=== PATIENT | female | born 1965 | race Two or more races ===

== ENCOUNTER 2018-11-29 23:48 | Emergency (ER) | payer OTHER, SELFPAY ==
[~2018-11-29] VITALS: Ht 157.5 cm; Wt 113.4 kg
[~2018-11-29 23:48] MED LIST: CLINDAMYCIN HC150 MG PO; NORCO 5-325 TA1 EACH PO
--- NOTE | 2018-11-30 | NUR ---
ED Nurse Note: pt walked in c/o epigastric pain radiating to right side started about an hour ago, pt reports nausea but denies vomiting, no dry heaves noted at this time, denies diarrhea but reports constipation, pt reports she has hx cholecystectomy. pt vss, resp even and unlabored on RA, active BS, noted tenderness upon palpation on upper quad, ERMD aware of pt's pain, will cont monitor.
[2018-11-30] MEDS ORDERED: Morphine Sulfate 4mg/ml Inj (IV USE ONLY) IVP ONE ×3 (00:15→05:15)
[2018-11-30] MEDS ORDERED: Isovue-300 100ml vial INJ PRN (00:15)
[2018-11-30 00:23] LABS: APPEARANCE,URINE CLEAR; BILIRUBIN, URINE NEGATIVE (NEGATIVE); COLOR,URINE PALE YELLOW; GLUCOSE, URINE (UA) NEGATIVE (NEGATIVE); KETONES,URINE NEGATIVE (NEGATIVE); LEUKOCYTE ESTERASE ,URINE 1+ (NEGATIVE); NITRITE,URINE NEGATIVE (NEGATIVE); PH,URINE 7 (4.5-8.0); PROTEIN,URINE NEGATIVE (NEGATIVE); UROBILINOGEN,URINE NORMAL MG/DL (0.0-1.0)
[2018-11-30 00:28] LABS: BASOPHILS % (AUTO) 0.8 % (0.0-2.0); EOSINOPHILS % (AUTO) 1.2 % (0.0-3.0); HEMATOCRIT 40.3 % (37.0-47.0); HEMOGLOBIN 13.9 G/DL (12.0-16.0); LYMPHOCYTES % (AUTO) 40.6 % (20.0-45.0); MEAN CORPUSCULAR VOLUME 86 FL (80-99); MONOCYTES % (AUTO) 8.8 % (1.0-10.0); NEUTROPHILS % (AUTO) 48.7 % (45.0-75.0); PLATELET COUNT 152 K/UL (150-450); RED BLOOD COUNT 4.68 M/UL (4.20-5.40); RED CELL DISTRIBUTION WIDTH 13.3 % (11.6-14.8); WHITE BLOOD COUNT 6.8 K/UL (4.8-10.8)
--- NOTE | 2018-11-30 00:35 | NUR ---
ED Nurse Note: pt provided w/ extra blanket for comfort, will cont monitor. safety precautions in place, vss.
[2018-11-30 00:41] LABS: ANION GAP 8 mmol/L (5-15); BLOOD UREA NITROGEN 10 mg/dL (7-18); CARBON DIOXIDE 26 MMOL/L (21-32); CHLORIDE 104 MMOL/L (98-107); CREATININE 0.7 MG/DL (0.55-1.30); SODIUM 138 MMOL/L (136-145)
[2018-11-30 00:43] VITALS: BP 179/79
--- NOTE | 2018-11-30 00:44 | Emergency Room Report ---
History of Present Illness General Chief Complaint: Abdominal Pain Source: Patient Present Illness HPI Patient presents with epigastric and upper abdominal pain for 2 days. It has been intermittent but constant now for the last 4 hours. She feels nausea but has not vomited. She feels flushed but denies any fevers or chills. She denies diarrhea. She felt similar to this when she had her gallbladder removed 23 years ago. At that time she was told she had a small ventral hernia. This intermittently gives her pain. This is not the area of where the pain is at this time. She has been able to move her bowels recently. She is passing gas. She denies any dysuria or flank pain at this time. She is no hematuria. The pain is rated 10/10, epigastric nonradiating, constant, burning and pressure. There is no chest pain, shortness of breath, rashes, extremity pain. Allergies: Coded Allergies: No Known Allergies (Unverified , 05/21/12) Patient History Past Medical History: see triage record Past Surgical History: severo Social History: Denies: smoking, alcohol use Social History Narrative brought by daughter Last Menstrual Period: 11/12/18 Now: No : 4 Para: 4 Reviewed Nursing Documentation: PMH: Agreed; PSxH: Agreed Nursing Documentation-PMH Hx Hypertension: Yes Review of Systems All Other Systems: negative except mentioned in HPI Physical Exam Vital Signs Date Time Temp Pulse Resp B/P (MAP) Pulse Ox O2 Delivery O2 Flow Rate FiO2 11/29/18 23:50 97.9 58 16 180/83 (115) 97 Room Air Sp02 EP Interpretation: reviewed, normal General Appearance: well appearing, alert, GCS 15, non-toxic, mild distress Head: normocephalic Eyes: bilateral eye normal inspection, bilateral eye PERRL ENT: moist mucus membranes Neck: supple Respiratory: lungs clear, normal breath sounds Cardiovascular #1: regular rate, rhythm Cardiovascular #2: 2+ radial (R) Gastrointestinal: normal inspection, normal bowel sounds, no mass, non- distended, no rebound, guarding - Minimal, tenderness - Epigastric pain, other - No right lower quadrant tenderness Genitourinary: no CVA tenderness Musculoskeletal: back normal, gait/station normal, normal range of motion, no calf tenderness Neurologic: alert, oriented x3, grossly normal Psychiatric: mood/affect normal Skin: no rash Medical Decision Making Diagnostic Impression: Primary Impression: Abdominal pain Qualified Codes: R10.13 - Epigastric pain Additional Impressions: Intractable vomiting Qualified Codes: R11.2 - Nausea with vomiting, unspecified Appendicolith R/O appendicitis ER Course Patient presents with epigastric pain with a distant history of cholecystectomy. Differential includes retained stone, pancreatitis, gastritis , peptic ulcer disease, diverticulitis amongst others. She is concerned about hernia however the exam is inconsistent with that. Due to the severe nature of the pain CT of the abdomen is indicated. In addition EKG and chest x-ray and labs will be performed. The patient will be treated with IV hydration, Zofran and morphine. KG with sinus bradycardia rate [address]-T wave changes Chest x-ray poor inspiration. Labs with normal white count without left shift. Potassium slightly low. Patient continuing to vomit. Metoclopramide and Benadryl given. Pain persists. Analgesia repeated. Continues to vomit bilious material. She continues to have epigastric pain but it is improved. CT abdomen suggests appendix upper limit of normal with appendicolith without any inflammation. This is inconsistent with the patient's presentation and pain pattern. However antibiotics are begun and also the patient is admitted to the hospital. Discussed with Dr. Arzate who accepts the patient in transfer to [facility]. Laboratory Tests Test 11/30/18 00:01 White Blood Count 6.8 K/UL (4.8-10.8) Red Blood Count 4.68 M/UL (4.20-5.40) Hemoglobin 13.9 G/DL (12.0-16.0) Hematocrit 40.3 % (37.0-47.0) Mean Corpuscular Volume 86 FL (80-99) Mean Corpuscular Hemoglobin 29.8 PG (27.0-31.0) Mean Corpuscular Hemoglobin Concent 34.6 G/DL (32.0-36.0) Red Cell Distribution Width 13.3 % (11.6-14.8) Platelet Count 152 K/UL (150-450) Mean Platelet Volume FL (6.5-10.1) Neutrophils (%) (Auto) 48.7 % (45.0-75.0) Lymphocytes (%) (Auto) 40.6 % (20.0-45.0) Monocytes (%) (Auto) 8.8 % (1.0-10.0) Eosinophils (%) (Auto) 1.2 % (0.0-3.0) Basophils (%) (Auto) 0.8 % (0.0-2.0) Prothrombin Time 10.6 SEC (9.30-11.50) Prothrombin Time INR 1.0 (0.9-1.1) PTT 27 SEC (23-33) Urine Color Pale yellow Urine Appearance Clear Urine pH 7 (4.5-8.0) Urine Specific [place] 1.010 (1.005-1.035) Urine Protein Negative (NEGATIVE) Urine Glucose (UA) Negative (NEGATIVE) Urine Ketones Negative (NEGATIVE) Urine Blood 1+ (NEGATIVE) H Urine Nitrite Negative (NEGATIVE) Urine Bilirubin Negative (NEGATIVE) Urine Urobilinogen Normal MG/DL (0.0-1.0) Urine Leukocyte Esterase 1+ (NEGATIVE) H Urine RBC 2-4 /HPF (0 - 2) H Urine WBC 2-4 /HPF (0 - 2) Urine Squamous Epithelial Cells Moderate /LPF (NONE/OCC) H Urine Bacteria Occasional /HPF (NONE) Sodium Level 138 MMOL/L (136-145) Potassium Level 3.0 MMOL/L (3.5-5.1) L Chloride Level 104 MMOL/L (98-107) Carbon Dioxide Level 26 MMOL/L (21-32) Anion Gap 8 mmol/L (5-15) Blood Urea Nitrogen 10 mg/dL (7-18) Creatinine 0.7 MG/DL (0.55-1.30) Estimate Glomerular Filtration Rate > 60 mL/min (>60) Glucose Level 123 MG/DL (74-106) H Calcium Level 9.0 MG/DL (8.5-10.1) Total Bilirubin 0.3 MG/DL (0.2-1.0) Aspartate Amino Transferase (AST) 19 U/L (15-37) Alanine Aminotransferase (ALT) 31 U/L (12-78) Alkaline Phosphatase 77 U/L (46-116) Troponin I 0.000 ng/mL (0.000-0.056) Total Protein 7.8 G/DL (6.4-8.2) Albumin 4.0 G/DL (3.4-5.0) Globulin 3.8 g/dL Albumin/Globulin Ratio 1.1 (1.0-2.7) Lipase 193 U/L (73-393) EKG Diagnostic Results Rate: bradycardiac Rhythm: NSR ST Segments: no acute changes Rhythm Strip Diag. Results EP Interpretation: yes Rhythm: no PVC's, no ectopy, other - Bradycardia Chest X-Ray Diagnostic Results Chest X-Ray Diagnostic Results : Chest X-Ray Ordered: Yes # of Views/Limited/Complete: 1 View Indication: Other EP Interpretation: Yes Interpretation: no consolidation, no effusion, no pneumothorax, other - Poor inspiration Impression: Other Electronically Signed by: Electronically signed by Logan Vo MD CT/MRI/US Diagnostic Results CT/MRI/US Diagnostic Results : Imaging Test Ordered: Abdomen/pelvis Impression Appendix is dilated to 9 mm in maximal diameter, likely obstructed by 8 mm appendicolith near the orifice best seen on series 3 images 67-78, without surrounding mesenteric inflammatory change, can still be patient's baseline. Early appendicitis should also be considered. Last Vital Signs Date Time Temp Pulse Resp B/P (MAP) Pulse Ox O2 Delivery O2 Flow Rate FiO2 11/30/18 07:40 98.9 62 15 146/75 97 Room Air Status: improved Disposition: XFER SHT-TRM HOSP Condition: Serious Referrals: NON PHYSICIAN (PCP) Logan Vo MD Nov 30, 2018 00:44
[2018-11-30 00:45] LABS: ALANINE AMINOTRANSFERASE 31 U/L (12-78); ALBUMIN/GLOBULIN RATIO 1.1 (1.0-2.7); ALKALINE PHOSPHATASE 77 U/L (46-116); ASPARTATE AMINO TRANSFERASE 19 U/L (15-37); BILIRUBIN,TOTAL 0.3 MG/DL (0.2-1.0)
--- NOTE | 2018-11-30 01:10 | NUR ---
ED Nurse Note: pt vomited x 2 after drinking redi-cat, ERMD notified, will cont monitor. aspiration precaution done.
[2018-11-30] MEDS ORDERED: DiphenhydrAMINE 50mg/ml Inj IVP ONE (01:15)
[2018-11-30] MEDS ORDERED: Metoclopramide 10mg/2ml Inj IVP ONE (01:15)
[2018-11-30 01:43] VITALS: BP 147/78
--- NOTE | 2018-11-30 01:45 | NUR ---
ED Nurse Note: pt resting at this time, daughter at the bedside, vss, resp even and unlabored, safety precaution in place, pt advised to notify staff if need assist. will cont monitor.
--- NOTE | 2018-11-30 02:15 | NUR ---
ED Nurse Note: pt reports pain on abd area, ermd notified. will cont monitor.
--- NOTE | 2018-11-30 02:21 | Diagnostic Imaging Report ---
EXAM: XR Chest, 1 View CLINICAL HISTORY: ABD PAIN TECHNIQUE: Frontal view of the chest. COMPARISON: No relevant prior studies available. FINDINGS: Lungs: Unremarkable. No consolidation. Pleural space: Unremarkable. No pneumothorax. Heart: Unremarkable. No cardiomegaly. Mediastinum: Unremarkable. Bones/joints: Unremarkable. IMPRESSION: Normal chest x-ray.
[2018-11-30 02:43] VITALS: BP 130/97
--- NOTE | 2018-11-30 03:00 | NUR ---
ED Nurse Note: PT OFF TO CT.
--- NOTE | 2018-11-30 03:14 | NUR ---
HAND-OFF: Report given to ALECIA DUQUE [facility], PT CURRENTLY IN CT.
--- NOTE | 2018-11-30 03:40 | NUR ---
ED Nurse Note: Recieved report from ALECIA Ricks to resume care, pt is returning from imaging, on gurney awake, alert and oriented x 4 and with active emesis, pt has patent iv line and fluids re-started as ordered, md informed of emesis, pt daughter at bedside, will resume care as ordered and continue to closely monitor.
--- NOTE | 2018-11-30 03:47 | Diagnostic Imaging Report ---
EXAM: CT Abdomen and Pelvis With Intravenous Contrast CLINICAL HISTORY: ABD PAIN TECHNIQUE: Axial computed tomography images of the abdomen and pelvis with intravenous contrast. CTDI is 26.4 mGy and DLP is 1431 mGy-cm. One or more of the following dose reduction techniques were used: automated exposure control, adjustment of the mA and/or kV according to patient size, use of iterative reconstruction technique. Coronal and sagittal reconstructions are performed COMPARISON: No relevant prior studies available. FINDINGS: Lung bases: Unremarkable. No mass. No consolidation. ABDOMEN: Liver: Cristóbal's lobe of liver Gallbladder and bile ducts: Cholecystectomy clips. No ductal dilation. Pancreas: Unremarkable. No mass. No ductal dilation. Spleen: Unremarkable. No splenomegaly. Adrenals: Unremarkable. No mass. Kidneys and ureters: Unremarkable. No solid mass. No hydronephrosis. Stomach and bowel: Unremarkable. No obstruction. No mucosal thickening. PELVIS: Appendix: Appendix is dilated to 9 mm in maximal diameter, likely obstructed by 8 mm appendicolith near the orifice best seen on series 3 images 67-78, without surrounding mesenteric inflammatory change, can still be patient's baseline. Bladder: Unremarkable. No mass. Reproductive: Unremarkable as visualized. ABDOMEN and PELVIS: Intraperitoneal space: Unremarkable. No free air. No significant fluid collection. Bones/joints: No acute fracture. No dislocation. Soft tissues: Unremarkable. Vasculature: Unremarkable. No abdominal aortic aneurysm. Lymph nodes: Unremarkable. No enlarged lymph nodes. IMPRESSION: Appendix is dilated to 9 mm in maximal diameter, likely obstructed by 8 mm appendicolith near the orifice best seen on series 3 images 67-78, without surrounding mesenteric inflammatory change, can still be patient's baseline. Early appendicitis should also be considered. Please correlate with clinical and laboratory findings. <MYCVCSECTION> [employer] 11/30/18 03:54 Verify Receipt Verified receipt with Charge Nurse Shanae in the ER for Dr. Vo on 11/30 03:53 (-07:00)
[2018-11-30] MEDS ORDERED: Piperacillin/Tazobactam 3.375 GM in NS 110 ML IVPB ONE (04:15)
[2018-11-30 05:00] VITALS: BP 119/74
--- NOTE | 2018-11-30 05:15 | NUR ---
ED Nurse Note: Pt continues to rest quietly in bed, on cardiac monitoring, iv site patent with fluids infusing as ordered, pt also given iv antibiotics with no s/s of adverse reaction noted, also re-medicated for pain and nausea and emesis, pt continues to have frequent intermittent periods of emesis, and increased pain, pain meds effective, pt being transferred for continued care, waiting for all transfer information, daughter remains at bedside.
--- NOTE | 2018-11-30 06:10 | NUR ---
ED Nurse Note: Pt being transferred to [facility], report called to fish house worker ALECIA Beard, at [phone], report given with all pertinent info and results, ambulance [id number], pt aware and agrees to transfer, will continue to closely monitor while waiting for transport.
--- NOTE | 2018-11-30 07:10 | NUR ---
HAND-OFF: Report given to ALECIA Duran. Pt in bed sleeping, no sob or labored breathing, IV site intact and patent, on monitoring, v/s stable, waiting for pt transport for transfer, new ambulance ETA of 7:20, daughter remains at bedside, NAD noted during shift change.
[2018-11-30 07:40] VITALS: BP 146/75
--- NOTE | 2018-11-30 07:40 | NUR ---
ED Nurse Note: Report given to [facility] staff. Pt stable for transfer and belongings sent with pt.
--- NOTE | 2018-12-02 11:08 | Cardiology Report ---
APPROVED REPORT EKG Measurement Heart [id number] Sinus bradycardia Otherwise normal ECG
== END 2018-11-30 07:40 | disposition short-term general hospital (02) ==
LOC: EMR 11-30 00:20
DX: R10.13 Epigastric pain (principal); R11.2 Nausea with vomiting, unspecified; K38.1 Appendicular concretions; Z90.49 Acquired absence of other specified parts of digestive tract; I10 Essential (primary) hypertension; R00.1 Bradycardia, unspecified
CPT/HCPCS: 36415; 71045; 74177; 80053; 81003; 83690; 84484; 85025; 85610; 85730; 93005; 96361; 96365; 96367; 96372; 96375; 96376; 99285; J1200; J2270; J2405; J2543; J2550; J2765; J3480; Q9967; S0028

== ENCOUNTER 2018-12-26 21:57 | Emergency (ER) | payer OTHER ==
[~2018-12-26] VITALS: Ht 157.5 cm; Wt 90.7 kg
--- NOTE | 2018-12-26 22:15 | NUR ---
ED Nurse Note: Recieved pt from home, here with c/o mid abd pain x 3 hjours with nausea, no emesis, pt has had recent surgery and wants to make sure everything is ok, denies cp, sob, or any other complaints, pt gowned and iv ine placed.
--- NOTE | 2018-12-26 22:21 | Emergency Room Report ---
History of Present Illness General Chief Complaint: Abdominal Pain Source: Patient, Family Member Present Illness HPI 53-year-old female with a history of recent appendectomy a month ago. He also had previous cholecystectomy. She presents with chief complaint of abdominal pain. Onset today. Pain is diffuse in nature. Pain starts in epigastric area and radiate downward and diffusely. Pain is sharp and crampy. 9 out of 10. Nausea but no vomiting. Has diarrhea. No fever chills but no trauma. No urinary complaint. Nothing made it better. Movement and palpation made it worse. Allergies: Coded Allergies: No Known Allergies (Unverified , 05/21/12) Patient History Past Medical History: see triage record, old chart reviewed Past Surgical History: appy, severo Pertinent Family History: none Social History: Denies: smoking Last Menstrual Period: na Now: No Immunizations: other Reviewed Nursing Documentation: PMH: Agreed; PSxH: Agreed Nursing Documentation-PMH Hx Hypertension: Yes Review of Systems Eye: Denies: eye pain, blurred vision ENT: Denies: ear pain, nose congestion, throat swelling Respiratory: Denies: cough, shortness of breath Cardiovascular: Denies: chest pain, palpitations Gastrointestinal: Reports: abdominal pain, diarrhea, nausea; Denies: vomiting Musculoskeletal: Denies: back pain, joint pain Skin: Denies: rash Neurological: Denies: headache, numbness Endocrine: Denies: increased thirst, increased urine Hematologic/Lymphatic: Denies: easy bruising All Other Systems: negative except mentioned in HPI Physical Exam Vital Signs Date Time Temp Pulse Resp B/P (MAP) Pulse Ox O2 Delivery O2 Flow Rate FiO2 12/26/18 22:00 98.2 65 16 147/84 (105) 93 Room Air Vitals unremarkable Sp02 EP Interpretation: reviewed, normal General Appearance: well appearing, no apparent distress, alert Head: normocephalic, atraumatic Eyes: bilateral eye PERRL, bilateral eye EOMI ENT: hearing grossly normal, normal pharynx Neck: full range of motion, supple, no meningismus Respiratory: chest non-tender, lungs clear, normal breath sounds Cardiovascular #1: regular rate, rhythm, no murmur Gastrointestinal: no mass, no organomegaly, no bruit, non-distended, tenderness - Diffuse, decreased bowel sounds Musculoskeletal: back normal, gait/station normal, normal range of motion Psychiatric: mood/affect normal Medical Decision Making Diagnostic Impression: Primary Impression: Abdominal pain Qualified Codes: R10.84 - Generalized abdominal pain Additional Impression: Diarrhea Qualified Codes: R19.7 - Diarrhea, unspecified ER Course Patient presents with abdominal pain with diarrhea. Most likely viral in nature. No evidence of any obstruction. CT scans unremarkable. She does have elevated liver enzyme. This may be a viral hepatitis also. No evidence of any retained gallstone. Will discharge home. CT/MRI/US Diagnostic Results CT/MRI/US Diagnostic Results : Imaging Test Ordered: CT abdomen pelvis Impression Read by radiologist. Irregular indeterminate low-attenuation the left hepatic lobe. Otherwise negative. Last Vital Signs Date Time Temp Pulse Resp B/P (MAP) Pulse Ox O2 Delivery O2 Flow Rate FiO2 12/26/18 22:00 98.2 65 16 147/84 (105) 93 Room Air Status: improved Disposition: HOME, SELF-CARE Condition: Stable Scripts Ibuprofen* (MOTRIN*) 600 Mg Tablet 600 MG ORAL THREE TIMES A DAY, #30 TAB 0 Refills Prov: Jeremy Avelar MD 12/26/18 Ondansetron (Zofran) 4 Mg Tablet 4 MG ORAL Q6H PRN for Nausea & Vomiting, #10 TAB 0 Refills Prov: Jeremy Avelar MD 12/26/18 Patient Instructions: Abdominal Pain, Adult Additional Instructions: Follow-up with your doctor in 2-3 days. Return if symptoms worsen. Jeremy Avelar MD Dec 26, 2018 22:21
[2018-12-26] MEDS ORDERED: Morphine Sulfate 4mg/ml Inj (IV USE ONLY) IVP ONE (22:30)
[2018-12-26 22:32] LABS: APPEARANCE,URINE CLEAR; BILIRUBIN, URINE NEGATIVE (NEGATIVE); GLUCOSE, URINE (UA) NEGATIVE (NEGATIVE); KETONES,URINE NEGATIVE (NEGATIVE); LEUKOCYTE ESTERASE ,URINE 1+ (NEGATIVE); NITRITE,URINE NEGATIVE (NEGATIVE); PH,URINE 6 (4.5-8.0); PROTEIN,URINE NEGATIVE (NEGATIVE); UROBILINOGEN,URINE NORMAL MG/DL (0.0-1.0)
[2018-12-26 22:41] LABS: COLOR,URINE YELLOW
[2018-12-26 22:43] LABS: ANION GAP 10 mmol/L (5-15); BASOPHILS % (AUTO) 0.5 % (0.0-2.0); BLOOD UREA NITROGEN 13 mg/dL (7-18); CARBON DIOXIDE 27 MMOL/L (21-32); CHLORIDE 104 MMOL/L (98-107); CREATININE 0.8 MG/DL (0.55-1.30); EOSINOPHILS % (AUTO) 1.4 % (0.0-3.0); MEAN CORPUSCULAR VOLUME 85 FL (80-99); MONOCYTES % (AUTO) 8.6 % (1.0-10.0); NEUTROPHILS % (AUTO) 61.5 % (45.0-75.0); PLATELET COUNT 200 K/UL (150-450); POTASSIUM 3.2 MMOL/L (3.5-5.1); RED BLOOD COUNT 4.91 M/UL (4.20-5.40); RED CELL DISTRIBUTION WIDTH 12.5 % (11.6-14.8); SODIUM 141 MMOL/L (136-145); WHITE BLOOD COUNT 5.5 K/UL (4.8-10.8)
[2018-12-26 22:47] LABS: ALANINE AMINOTRANSFERASE 79 U/L (12-78); ALBUMIN 4.1 G/DL (3.4-5.0); ALKALINE PHOSPHATASE 152 U/L (46-116); ASPARTATE AMINO TRANSFERASE 46 U/L (15-37); BILIRUBIN,TOTAL 0.6 MG/DL (0.2-1.0)
--- NOTE | 2018-12-26 23:10 | NUR ---
ER DISCHARGE NOTE: Patient is cleared to be discharged per ERMD, pt is aox4, on room air, with stable vital signs. pt was given dc and prescription instructions, pt was able to verbalize understanding, pt id band and iv site removed without complications. pt is able to ambulate with steady gait. pt took all belongings.
[2018-12-26 23:20] VITALS: BP 147/84
[2018-12-26] MEDS ORDERED: IBUPROFEN600 MG ORAL (23:20)
[2018-12-26] MEDS ORDERED: ZOFRAN4 MG ORAL (23:20)
== END 2018-12-26 23:20 | disposition home or self-care (01) ==
LOC: EMR 22:20
DX: R10.84 Generalized abdominal pain (principal); R19.7 Diarrhea, unspecified; I10 Essential (primary) hypertension; Z90.49 Acquired absence of other specified parts of digestive tract
CPT/HCPCS: 36415; 74176; 80053; 81003; 83690; 85025; 96361; 96374; 96375; J2270; J2405; Z7502; 99284

== ENCOUNTER 2019-06-13 07:39 | Emergency (ER) | payer OTHER ==
[~2019-06-13] VITALS: Ht 162.6 cm; Wt 63.5 kg
[~2019-06-13 07:39] MED LIST changes: +IBUPROFEN600 MG ORAL; +ZOFRAN4 MG ORAL
--- NOTE | 2019-06-13 07:44 | Emergency Room Report ---
History of Present Illness General Chief Complaint: Female Urogenital Problems Source: Patient Present Illness HPI The patient presents with vaginal bleeding. She is passing clots and fresh blood. Began yesterday. She is feeling some mild abdominal pain rated 5/10 in the lower abdomen without radiation. She has felt feverish but not documented temperature. She feels slightly dizzy when she stands up and weak. She is not taking vitamins at this time. She denies any dysuria or change in bowels. No vomiting or nausea. She does not believe she is at this time. She is anxious at this time. She had a procedure in November where small tumors in her uterus and cervix were removed. There was no bleeding until menstrual cycle on 14 May. She states before the surgery was done she had not had a menstruation for 3 to 4 months. The surgery was done because she had bleeding at that time. History of hypertension. No sore throat, chest pain, palpitations, diarrhea, dysuria, shortness of breath , joint pain, rashes, visual changes, headache. Allergies: Coded Allergies: No Known Allergies (Unverified , 05/21/12) Patient History Past Medical History: see triage record Past Surgical History: other - Uterine surgery Social History: Denies: smoking, alcohol use, drug use Social History Narrative With her daughter Last Menstrual Period: N/A Now: No Reviewed Nursing Documentation: PMH: Agreed; PSxH: Agreed Nursing Documentation-PMH Hx Cardiac Problems: No - fibroids Hx Hypertension: Yes Review of Systems All Other Systems: negative except mentioned in HPI Physical Exam Vital Signs Date Time Temp Pulse Resp B/P (MAP) Pulse Ox O2 Delivery O2 Flow Rate FiO2 06/13/19 07:34 98.2 63 18 184/77 (112) 99 Room Air Sp02 EP Interpretation: reviewed, normal General Appearance: well appearing, no apparent distress, GCS 15, non-toxic Head: normocephalic Eyes: bilateral eye normal inspection, bilateral eye PERRL, bilateral eye EOMI ENT: moist mucus membranes Neck: supple Respiratory: lungs clear, normal breath sounds Cardiovascular #1: regular rate, rhythm Cardiovascular #2: 2+ radial (R) Gastrointestinal: normal inspection, normal bowel sounds, non tender, no mass, non-distended Genitourinary: ext genitalia/vag normal, os closed, other - clot removed, no active bleeding - cannot feel size of uterus Musculoskeletal: back normal, normal range of motion Neurologic: alert, oriented x3, normal inspection Psychiatric: anxious Skin: no rash, normal color, warm/dry Medical Decision Making Diagnostic Impression: Primary Impression: Dysfunctional uterine bleeding Additional Impression: Fibroid ER Course Patient presents with vaginal bleeding. Differential includes fibroids, postoperative bleeding, cervical lesion, threatened miscarriage, molar amongst others. Evaluation with labs, pelvic exam and pelvic ultrasound. Patient treated with IV hydration and Tylenol. Patient placed on satellite project site monitor. The patient is not in shock at this time. Labs remarkable for normal hemoglobin hematocrit. Slightly low potassium. Glucose minimally elevated. Urinalysis with vaginal blood. Coags normal. negative. Ultrasound reveals small fibroids. No active bleeding was seen on pelvic exam and no further brisk bleeding on repeat exam. Pain resolved. Discussed findings and the need for outpatient follow-up with her [employer] COUNSELOR. Patient stable for outpatient observation and treatment. Laboratory Tests Test 06/13/19 07:50 06/13/19 08:00 White Blood Count 5.5 K/UL (4.8-10.8) Red Blood Count 5.11 M/UL (4.20-5.40) Hemoglobin 14.8 G/DL (12.0-16.0) Hematocrit 44.4 % (37.0-47.0) Mean Corpuscular Volume 87 FL (80-99) Mean Corpuscular Hemoglobin 28.9 PG (27.0-31.0) Mean Corpuscular Hemoglobin Concent 33.2 G/DL (32.0-36.0) Red Cell Distribution Width 13.8 % (11.6-14.8) Platelet Count 122 K/UL (150-450) L Mean Platelet Volume 15.5 FL (6.5-10.1) H Neutrophils (%) (Auto) 56.9 % (45.0-75.0) Lymphocytes (%) (Auto) 34.5 % (20.0-45.0) Monocytes (%) (Auto) 6.4 % (1.0-10.0) Eosinophils (%) (Auto) 1.4 % (0.0-3.0) Basophils (%) (Auto) 0.9 % (0.0-2.0) Prothrombin Time 10.4 SEC (9.30-11.50) Prothrombin Time INR 1.0 (0.9-1.1) Activated Partial Thromboplast Time 26 SEC (23-33) Sodium Level 141 MMOL/L (136-145) Potassium Level 3.3 MMOL/L (3.5-5.1) L Chloride Level 105 MMOL/L (98-107) Carbon Dioxide Level 26 MMOL/L (21-32) Anion Gap 10 mmol/L (5-15) Blood Urea Nitrogen 9 mg/dL (7-18) Creatinine 0.5 MG/DL (0.55-1.30) L Estimate Glomerular Filtration Rate > 60 mL/min (>60) Glucose Level 133 MG/DL (74-106) H Calcium Level 8.7 MG/DL (8.5-10.1) Total Bilirubin 0.3 MG/DL (0.2-1.0) Aspartate Amino Transferase (AST) 14 U/L (15-37) L Alanine Aminotransferase (ALT) 31 U/L (12-78) Alkaline Phosphatase 73 U/L (46-116) Total Protein 7.7 G/DL (6.4-8.2) Albumin 3.7 G/DL (3.4-5.0) Globulin 4.0 g/dL Albumin/Globulin Ratio 0.9 (1.0-2.7) L Lipase 177 U/L (73-393) Human Chorionic Gonadotropin, Qual Negative (NEGATIVE) Urine Color Red Urine Appearance Turbid Urine pH 6.5 (4.5-8.0) Urine Specific [place] 1.015 (1.005-1.035) Urine Protein 3+ (NEGATIVE) H Urine Glucose (UA) Negative (NEGATIVE) Urine Ketones Negative (NEGATIVE) Urine Blood 5+ (NEGATIVE) H Urine Nitrite Negative (NEGATIVE) Urine Bilirubin Negative (NEGATIVE) Urine Urobilinogen Normal MG/DL (0.0-1.0) Urine Leukocyte Esterase 1+ (NEGATIVE) H Urine RBC Tntc /HPF (0 - 2) H Urine WBC 2-4 /HPF (0 - 2) Urine Squamous Epithelial Cells Few /LPF (NONE/OCC) Urine Bacteria Few /HPF (NONE) Microbiology Date/Time Source Procedure Growth Status 06/13/19 08:10 Vaginal Wet Prep - Final Complete CT/MRI/US Diagnostic Results CT/MRI/US Diagnostic Results : Imaging Test Ordered: u/s pelvis Impression fibroids Last Vital Signs Date Time Temp Pulse Resp B/P (MAP) Pulse Ox O2 Delivery O2 Flow Rate FiO2 06/13/19 11:35 98.3 86 18 138/87 98 Room Air Status: improved Disposition: HOME, SELF-CARE Condition: Improved Scripts Ibuprofen* (MOTRIN*) 600 Mg Tablet 600 MG ORAL Q6H PRN for For Pain, #16 TAB Prov: Logan Vo MD 06/13/19 Vit No.124/Iron/FA ( Vitamin Tablet) 1 Each Tablet 1 EACH PO DAILY, #30 TAB Prov: Logan Vo MD 06/13/19 Logan Vo MD Jun 13, 2019 07:44
[2019-06-13 07:50] VITALS: BP 184/77
--- NOTE | 2019-06-13 07:50 | NUR ---
ED Nurse Note: Patient was BIBA from home due to heavy vaginal bleeding since this night. Patient stated has severe crumping pain 10/10, AAO x4, VSS at this time, skin is warm to touch.
[2019-06-13 08:04] LABS: BASOPHILS % (AUTO) 0.9 % (0.0-2.0); EOSINOPHILS % (AUTO) 1.4 % (0.0-3.0); HEMATOCRIT 44.4 % (37.0-47.0); HEMOGLOBIN 14.8 G/DL (12.0-16.0); LYMPHOCYTES % (AUTO) 34.5 % (20.0-45.0); MEAN CORPUSCULAR VOLUME 87 FL (80-99); MONOCYTES % (AUTO) 6.4 % (1.0-10.0); NEUTROPHILS % (AUTO) 56.9 % (45.0-75.0); PLATELET COUNT 122 K/UL (150-450); RED BLOOD COUNT 5.11 M/UL (4.20-5.40); RED CELL DISTRIBUTION WIDTH 13.8 % (11.6-14.8); WHITE BLOOD COUNT 5.5 K/UL (4.8-10.8)
--- NOTE | 2019-06-13 08:10 | NUR ---
ED Nurse Note: Pelvic exam done by Dr. Vo, wet mount prep colected sent down
[2019-06-13 08:25] LABS: APPEARANCE,URINE TURBID; BILIRUBIN, URINE NEGATIVE (NEGATIVE); GLUCOSE, URINE (UA) NEGATIVE (NEGATIVE); KETONES,URINE NEGATIVE (NEGATIVE); LEUKOCYTE ESTERASE ,URINE 1+ (NEGATIVE); NITRITE,URINE NEGATIVE (NEGATIVE); PH,URINE 6.5 (4.5-8.0); PROTEIN,URINE 3+ (NEGATIVE); UROBILINOGEN,URINE NORMAL MG/DL (0.0-1.0)
[2019-06-13 08:26] LABS: COLOR,URINE RED
[2019-06-13 08:30] LABS: ANION GAP 10 mmol/L (5-15); BLOOD UREA NITROGEN 9 mg/dL (7-18); CALCIUM 8.7 MG/DL (8.5-10.1); CARBON DIOXIDE 26 MMOL/L (21-32); CHLORIDE 105 MMOL/L (98-107); CREATININE 0.5 MG/DL (0.55-1.30); POTASSIUM 3.3 MMOL/L (3.5-5.1); SODIUM 141 MMOL/L (136-145)
[2019-06-13 08:40] LABS: ALANINE AMINOTRANSFERASE 31 U/L (12-78); ALBUMIN 3.7 G/DL (3.4-5.0); ALBUMIN/GLOBULIN RATIO 0.9 (1.0-2.7); ALKALINE PHOSPHATASE 73 U/L (46-116); ASPARTATE AMINO TRANSFERASE 14 U/L (15-37); BILIRUBIN,TOTAL 0.3 MG/DL (0.2-1.0)
--- NOTE | 2019-06-13 09:44 | Diagnostic Imaging Report ---
EXAM: US Pelvis Transabdominal and Transvaginal, Complete CLINICAL HISTORY: Vaginal bleeding. TECHNIQUE: Real-time complete transabdominal and transvaginal pelvic ultrasound with image documentation. Transvaginal imaging was used for better evaluation of the endometrium and adnexa. COMPARISON: December 26, 2018. FINDINGS: Uterus/cervix: 10 x 7.8 x 7 cm. Normal endometrial stripe thickness at 1-2 mm. Small fibroids, largest measuring 1.3 x 1.5 cm. Right ovary: Not visualized Left ovary: Not visualized. Free fluid: No free fluid. IMPRESSION: Assuming negative test. Multiple small fibroids. Normal endometrial stripe. The ovaries are not visualized. No definite adnexal masses or free fluid.
[2019-06-13] MEDS ORDERED: IBUPROFEN600 MG ORAL (11:20)
[2019-06-13] MEDS ORDERED: PRENATAL VITAM1 EAC7 PO (11:20)
[2019-06-13 11:35] VITALS: BP 138/87
== END 2019-06-13 11:35 | disposition home or self-care (01) ==
LOC: EDBD 07:39 → EMR 07:50
DX: N93.8 Other specified abnormal uterine and vaginal bleeding (principal); D25.9 Leiomyoma of uterus, unspecified; I10 Essential (primary) hypertension; Z98.890 Other specified postprocedural states
CPT/HCPCS: 36415; 76830; 80053; 81003; 83690; 84703; 85025; 85610; 85730; 86850; 86900; 86901; 87210; 96360; 96361; J7030; Z7502; 99284; J8499